=== PATIENT | female | born 1970 | race Caucasian/White ===

== ENCOUNTER 2020-03-20 17:32 | Emergency (ER) | payer MEDICAID, SELFPAY ==
[2020-03-20 18:01] VITALS: BP 149/88; PULSE 100; RESP 19; TEMP 36.9; O2SAT 98; BMI 37.8
--- NOTE | 2020-03-20 18:18 | [facility].EDUTC ---
[facility] [place] Clinical Impression: Encounter for laboratory testing for COVID-19 virus Disposition: Home, Self-Care Condition on Discharge: Good Instructions: Preventing the Spread of Coronavirus Discharge Instructions Additional Instructions: You was given handout for instructions for Self Quarantine or Self isolation while you await your test results and what to do if positive No work until negative Covid test Over the counter Tylenol as directed on package for fever or pain Return if needed Straight to ER if any life threatening symptoms Call Back to the [facility] Wednesday or Wednesday to see if your test results are back and the result Referrals: Reinier Cee [Primary Care Provider] - As needed Forms: Work/School Release Time of Disposition: 18:31 Medical Decision Making - Ramon Inquiry Pt receiving controlled substance: No Ramon was queried for this patient: No Vital Signs: 03/20/20 18:01 Temperature 98.4 F Temperature Source Oral Pulse Rate [Right Brachial] 100 H Respiratory Rate 19 Blood Pressure [Right Arm] 149/88 H Blood Pressure Mean [Right Arm] 108 Blood Pressure Source [Right Arm] Automatic Cuff Blood Pressure Position [Right Arm] Sitting 02 Sat by Pulse Oximetry 98 Oxygen Delivery Method Room Air Orders (Tests/Meds): ORDERS Category Date Time Status SARS-CoV-2, DEON Stat Lab 03/20/20 18:00 Received [facility] [place] - General Stated complaint: wants COVID testing Time Seen by Provider: 03/20/20 18:18 Mode of Arrival: Ambulatory Source of Information: Patient Limitations: No Limitations Description of Symptoms (Recalled from Triage Doc. by RN): PATIENT REQUESTING COVID TEST FOR WORK. DENIES SYMPTOMS HEENT Symptoms (Recalled from RN notes): No Resp Symptoms (Recalled from RN notes): No Skin Symptoms (Recalled from RN notes): No MS Symptoms (Recalled from RN notes): No Functional Status (Recalled from RN notes): WNL - History of Present Illness Provider Complaint: Patient states that she is needing a COVID test for work State that she was recently around someone that had a fever and had to get tested so her work made her come and get checked also Denies any symptoms - Related Data Home Medications Medication Instructions Recorded Confirmed Lisinopril/Hydrochlorothiazide 1 tab PO DAILY 03/20/20 03/20/20 [Lisinopril-Hctz 20-25 mg Tab*] NIFEdipine [Nifedipine ER] 30 mg PO DAILY 03/20/20 03/20/20 Omeprazole [Omeprazole 20mg 20 mg PO DAILY 03/20/20 03/20/20 Capsule] Allergies Allergy/AdvReac Type Severity Reaction Status Date / Time No Known Allergies Allergy Verified 03/20/20 18:06 - Worker's Comp Is this a Worker's Comp case?: No [facility] History - Hepatitis A Screen Drug use history?: No High risk sexual behaviors?: No History of sexually transmitted infection?: No Currently employed?: No Childcare worker?: No Do you have indoor plumbing?: Yes Do you have electricity?: Yes Attestation statement:: This patient has been screened for Hepatitis A risk factors. I have reviewed the patient's past medical history: Yes - Social History Smoking Status: Current every day smoker Tobacco Type: cigarettes # Packs/Day (cigarettes): 1 Alcohol Intake: never Occupational Status: other ROS Obtained: Yes All systems reviewed & no additional complaints, Yes Systems reviewed as appropriate & no additional complaints - Constitutional Constitutional: Reports system reviewed and no additional complaints, except as docu, Denies body ache, Denies chills, Denies fever(s) - ENT Ears, Nose, Mouth, and Throat: Reports system reviewed and no additional complaints, except as docu - Cardiovascular Cardiovascular: Reports system reviewed and no additional complaints, except as docu - Respiratory Respiratory: Yes system reviewed and no additional complaints, except as docu - Gastrointestinal Gastrointestingal: Reports: system reviewed and no additional complaints, except as docu
[2020-03-20 18:33] VITALS: BP 149/88; PULSE 100; RESP 19; TEMP 36.9; O2SAT 98
[2020-03-22 14:08] LABS: Covid-19 Nasal PCR Sendout Lex Not Detected
== END 2020-03-20 18:36 | disposition home or self-care (01) ==
PROVIDERS: Emergency Provider Nurse Practitioner; PCP Pediatrics
DX: Z20.828 Contact with and (suspected) exposure to other viral communicable diseases (principal); I10 Essential (primary) hypertension; F17.210 Nicotine dependence, cigarettes, uncomplicated
CPT/HCPCS: 99201; U0004